=== PATIENT | female | born 1980 | race Caucasian/White ===

== ENCOUNTER 2018-04-04 11:29 | Inpatient (IN) | payer BC, MEDICAID ==
[~2018-04-04] VITALS: Ht 167.6 cm; Wt 108.7 kg
[~2018-04-04 11:29] MED LIST: AMLO5TAB2; CARI-277 OR; MAXIDE; METO50TA7; NOR10T GT; OXYC5CAP17 OR; ZOLP-158 OR
[2018-04-04 13:47] LABS: Albumin 3.7 g/dL (3.4-5.0); BUN/Creatinine Ratio 15.9; Bilirubin, Total 1.4 mg/dL (0.2-1.0); Calcium 8.7 mg/dL (8.5-10.1); Magnesium 2.1 mg/dL (1.6-2.6); Potassium 3.6 mmol/L (3.5-5.1); Total Protein 8.3 g/dL (6.4-8.2)
[2018-04-04 14:10] LABS: Basophils # (auto) 0 uL; Basophils % (auto) 0.3 % (0.0-2.0); Eosinophils # (auto) 0 uL; Eosinophils % (auto) 0.1 % (0.0-7.0); Hematocrit 44.3 % (36.0-46.0); Hemoglobin 14.9 g/dL (12.2-16.2); Lymphocytes # (auto) 1.4 uL; Lymphocytes % (auto) 15.9 % (10.0-50.0); Mean Corpuscular Hemoglobin 31.7 pg (28.0-32.0); Mean Corpuscular Hgb Conc. 33.6 g/dL (32.0-36.0); Mean Corpuscular Volume 94.5 fL (80.0-100.0); Monocytes # (auto) 0.5 uL; Monocytes % (auto) 5.5 % (0.0-12.0); Neutrophils # (auto) 6.8 uL; Neutrophils % (auto) 78.2 % (37.0-80.0); Nucleated Red Blood Cells % 0.1 %; Platelet Count (auto) 248 10^3/uL (140-450); Red Blood Cells 4.69 10^6/uL (4.0-5.20); Red Cell Distribution Width 15.5 % (11.8-14.3); White Blood Cell 8.7 10^3/uL (4.4-10.8)
[2018-04-04] MEDS ORDERED: SODIUM CHLORIDE 0.9% 1,000 ML IVB ONE (14:41)
[2018-04-04] MEDS ORDERED: HYDROmorphone HCL 2 MG/ML VL IV ONE ×2 (14:45→18:30)
[2018-04-04] MEDS ORDERED: PROMETHAZINE HCL 25 MG/ML 1ML IV PRN (14:45)
[2018-04-04 15:42] LABS: INR 0.99 (0.9-1.15); Partial Thromboplastin Time 24.4 sec (23.78-33.04); Prothrombin Time 10.6 sec (9.27-12.13)
[2018-04-04] MEDS: SODIUM CHLORIDE 0.9% 1,000 ML IV SCH (18:00)
[2018-04-04] MEDS ORDERED: NITROGLYCERIN 0.4 MG SL TAB SL PRN (18:00)
[2018-04-04] MEDS ORDERED: MORPHINE SULFATE 8mg/ml INJ SDV IV PRN ×3 (18:00)
[2018-04-04] MEDS ORDERED: LEVOFLOXACIN 500MG 100 ML IV ONE (18:00)
[2018-04-04] MEDS ORDERED: LEVOFLOXACIN 500MG 100 ML IV SCH (18:24)
[2018-04-04] MEDS: cefTRIAXone 1GM/10ml IVPUSH 10 ML IV SCH (20:50)
[2018-04-04 21:00] VITALS: BP 163/110
[2018-04-04] MEDS: HYDROmorphone HCL 2 MG/ML VL IV PRN (21:31)
[2018-04-04 22:00] VITALS: BP 163/110
[2018-04-04] MEDS: FAMOTIDINE (10MG/ML) 2ML VL IV SCH (22:34)
[2018-04-04] MEDS: LORazepam 2MG/ML-1ML VIAL IV PRN (22:34)
[2018-04-04] MEDS: metroNIDAZOLE 500MG/100ML 100 ML IV SCH (22:34)
[2018-04-04 23:20] VITALS: BP 163/110
[2018-04-05] MEDS ORDERED: CYCL1TAB18 PO (00:16)
[2018-04-05] MEDS ORDERED: SERT-135 PO (00:16)
[2018-04-05] MEDS ORDERED: LEVO25TA6 PO (00:16)
[2018-04-05] MEDS ORDERED: LOSA100T25 PO (00:16)
[2018-04-05] MEDS: SODIUM CHLORIDE 0.9% 1,000 ML IV SCH ×4 (01:01→20:40)
[2018-04-05] MEDS ORDERED: HYDROmorphone HCL 2 MG/ML VL IV ONE (01:15)
[2018-04-05] MEDS: LORazepam 2MG/ML-1ML VIAL IV PRN (04:34)
[2018-04-05 05:00] VITALS: BP 159/102
[2018-04-05] MEDS: HYDROmorphone HCL 2 MG/ML VL IV PRN ×5 (05:29→21:56)
[2018-04-05] MEDS: metroNIDAZOLE 500MG/100ML 100 ML IV SCH ×3 (05:29→23:10)
[2018-04-05] MEDS: PROMETHAZINE HCL 25 MG/ML 1ML IV PRN ×4 (05:39→21:57)
[2018-04-05 06:00] LABS: Basophils # (auto) 0 uL; Basophils % (auto) 0.2 % (0.0-2.0); Eosinophils # (auto) 0 uL; Eosinophils % (auto) 0.1 % (0.0-7.0); Hematocrit 40.8 % (36.0-46.0); Hemoglobin 13.9 g/dL (12.2-16.2); Lymphocytes # (auto) 0.8 uL; Mean Corpuscular Hemoglobin 32.3 pg (28.0-32.0); Mean Corpuscular Volume 95.1 fL (80.0-100.0); Monocytes # (auto) 0.5 uL; Monocytes % (auto) 8.4 % (0.0-12.0); Neutrophils % (auto) 78.3 % (37.0-80.0); Nucleated Red Blood Cells % 0.1 %; Platelet Count (auto) 190 10^3/uL (140-450); Red Blood Cells 4.29 10^6/uL (4.0-5.20); Red Cell Distribution Width 15.6 % (11.8-14.3); White Blood Cell 6.4 10^3/uL (4.4-10.8)
[2018-04-05 06:46] LABS: Albumin 3.1 g/dL (3.4-5.0); Bilirubin, Total 1.1 mg/dL (0.2-1.0); Calcium 8.2 mg/dL (8.5-10.1); Potassium 3.5 mmol/L (3.5-5.1); Total Protein 7.4 g/dL (6.4-8.2)
[2018-04-05 06:50] LABS: Cholesterol 113 mg/dL (< 200); HDL Cholesterol 80 mg/dL (40-59); LDL Cholesterol 30 mg/dL (< 100); Triglycerides 43 mg/dL (< 150)
[2018-04-05 09:00] VITALS: BP 158/105
[2018-04-05] MEDS: FAMOTIDINE (10MG/ML) 2ML VL IV SCH ×2 (09:03→23:10)
[2018-04-05 13:00] VITALS: BP 159/94
[2018-04-05] MEDS: hydrALAZINE HCL 20 MG/ML VL IV PRN ×2 (15:50→15:53)
[2018-04-05 17:30] VITALS: BP 148/103
[2018-04-05 21:46] VITALS: BP 164/100
[2018-04-05] MEDS: cefTRIAXone 1GM/10ml IVPUSH 10 ML IV SCH (21:56)
[2018-04-06] MEDS: HYDROmorphone HCL 2 MG/ML VL IV PRN ×6 (01:58→22:31)
[2018-04-06] MEDS: PROMETHAZINE HCL 25 MG/ML 1ML IV PRN ×3 (01:58→10:12)
[2018-04-06] MEDS: SODIUM CHLORIDE 0.9% 1,000 ML IV SCH ×3 (04:53→21:40)
[2018-04-06] MEDS: hydrALAZINE HCL 20 MG/ML VL IV PRN (04:53)
[2018-04-06 04:54] VITALS: BP 166/106
[2018-04-06] MEDS: metroNIDAZOLE 500MG/100ML 100 ML IV SCH (05:54)
[2018-04-06 06:12] LABS: Albumin 2.7 g/dL (3.4-5.0); Potassium 3.1 mmol/L (3.5-5.1)
[2018-04-06 06:17] LABS: Bilirubin, Total 0.7 mg/dL (0.2-1.0); Total Protein 6.9 g/dL (6.4-8.2)
[2018-04-06 09:00] VITALS: BP 136/102
[2018-04-06] MEDS: FAMOTIDINE (10MG/ML) 2ML VL IV SCH ×2 (10:12→22:31)
[2018-04-06] MEDS ORDERED: LOSARTAN POTASSIUM 50 MG TAB PO ONE (11:45)
[2018-04-06] MEDS ORDERED: POTASSIUM CHL 20 Meq TABLET PO ONE (11:45)
[2018-04-06] MEDS ORDERED: LEVOTHYROXINE SODIUM 25 MCG TAB PO ONE (11:45)
[2018-04-06] MEDS ORDERED: ONDANSETRON HCL 4 MG/2 ML VIAL IV PRN (11:45)
[2018-04-06 12:00] VITALS: BP 139/92
[2018-04-06 17:00] VITALS: BP 135/89
[2018-04-06 22:00] VITALS: BP 158/86
[2018-04-07] MEDS: HYDROmorphone HCL 2 MG/ML VL IV PRN ×6 (02:34→23:56)
[2018-04-07] MEDS: SODIUM CHLORIDE 0.9% 1,000 ML IV SCH ×4 (02:35→16:28)
[2018-04-07 05:01] VITALS: BP 146/86
[2018-04-07 06:22] LABS: Basophils # (auto) 0 uL; Basophils % (auto) 0.9 % (0.0-2.0); Eosinophils # (auto) 0.1 uL; Hematocrit 34.2 % (36.0-46.0); Hemoglobin 11.4 g/dL (12.2-16.2); Lymphocytes # (auto) 1.5 uL; Lymphocytes % (auto) 35.2 % (10.0-50.0); Mean Corpuscular Hgb Conc. 33.3 g/dL (32.0-36.0); Monocytes # (auto) 0.3 uL; Monocytes % (auto) 7.1 % (0.0-12.0); Neutrophils # (auto) 2.3 uL; Neutrophils % (auto) 53.8 % (37.0-80.0); Nucleated Red Blood Cells % 0.1 %; Platelet Count (auto) 170 10^3/uL (140-450); Red Blood Cells 3.56 10^6/uL (4.0-5.20); Red Cell Distribution Width 15.6 % (11.8-14.3); White Blood Cell 4.2 10^3/uL (4.4-10.8)
[2018-04-07] MEDS: LEVOTHYROXINE SODIUM 25 MCG TAB PO SCH (06:36)
[2018-04-07 06:40] LABS: BUN/Creatinine Ratio 5.9; Calcium 7.9 mg/dL (8.5-10.1); Potassium 3.3 mmol/L (3.5-5.1)
[2018-04-07] MEDS ORDERED: POTASSIUM CHL 20 Meq TABLET PO ONE ×2 (08:00→08:04)
[2018-04-07] MEDS: FAMOTIDINE (10MG/ML) 2ML VL IV SCH ×2 (08:07→22:15)
[2018-04-07] MEDS ORDERED: SERTRALINE HCL 50 MG TAB PO SCH ×2 (08:15→10:00)
[2018-04-07 08:51] VITALS: BP 145/85
[2018-04-07] MEDS: LOSARTAN POTASSIUM 50 MG TAB PO SCH (09:17)
[2018-04-07 12:00] VITALS: BP 130/85
[2018-04-07 17:00] VITALS: BP 133/89
[2018-04-07 22:00] VITALS: BP 86/31
[2018-04-08] MEDS: HYDROmorphone HCL 2 MG/ML VL IV PRN ×7 (04:08→21:31)
[2018-04-08 04:56] VITALS: BP 136/94
[2018-04-08] MEDS: LEVOTHYROXINE SODIUM 25 MCG TAB PO SCH (06:14)
[2018-04-08] MEDS: SODIUM CHLORIDE 0.9% 1,000 ML IV SCH ×2 (07:15→17:15)
[2018-04-08 07:43] LABS: Potassium 3.7 mmol/L (3.5-5.1)
[2018-04-08 07:52] LABS: BUN/Creatinine Ratio 6.5; Calcium 8.2 mg/dL (8.5-10.1)
[2018-04-08] MEDS: FAMOTIDINE (10MG/ML) 2ML VL IV SCH ×2 (08:29→21:30)
[2018-04-08] MEDS: SERTRALINE HCL 50 MG TAB PO SCH (08:30)
[2018-04-08] MEDS: LOSARTAN POTASSIUM 50 MG TAB PO SCH (08:31)
[2018-04-08 09:00] VITALS: BP 140/94
[2018-04-08] MEDS: HYDROcodone-ACET 5/325MG TAB PO PRN ×2 (10:30→17:50)
[2018-04-08] MEDS ORDERED: LACTULOSE 20Gm/30ML SOLN PO PRN (11:30)
[2018-04-08] MEDS ORDERED: LACTULOSE 20Gm/30ML SOLN PO ONE (11:30)
[2018-04-08 13:00] VITALS: BP 149/93
[2018-04-08 16:57] VITALS: BP 152/90
[2018-04-08 21:55] VITALS: BP 140/92
[2018-04-09] MEDS: HYDROmorphone HCL 2 MG/ML VL IV PRN ×3 (01:38→10:04)
[2018-04-09 05:01] VITALS: BP 134/80
[2018-04-09] MEDS: LEVOTHYROXINE SODIUM 25 MCG TAB PO SCH (07:05)
[2018-04-09] MEDS: SODIUM CHLORIDE 0.9% 1,000 ML IV SCH ×2 (07:06→13:15)
[2018-04-09] MEDS: HYDROcodone-ACET 5/325MG TAB PO PRN (08:09)
[2018-04-09 09:22] VITALS: BP 146/91
[2018-04-09] MEDS: FAMOTIDINE (10MG/ML) 2ML VL IV SCH (10:03)
[2018-04-09] MEDS: LOSARTAN POTASSIUM 50 MG TAB PO SCH (10:03)
[2018-04-09] MEDS: SERTRALINE HCL 50 MG TAB PO SCH (10:04)
[2018-04-09 12:57] VITALS: BP 132/96
[2018-04-09 13:19] VITALS: BP 132/96
== END 2018-04-09 13:55 | disposition home or self-care (01) | DRG 439 ==
LOC: EDBD 11:29 → ER 11:29 → TELE 11:30 → TELE-EAST 20:45 → EAST 04-06 11:48
PROVIDERS: ADMIT Internal Medicine; ATTEND Internal Medicine
DX: K85.20 Alcohol induced acute pancreatitis without necrosis or infection (principal); E87.1 Hypo-osmolality and hyponatremia; E87.2 Acidosis; K76.0 Fatty (change of) liver, not elsewhere classified; F10.10 Alcohol abuse, uncomplicated; F32.9 Major depressive disorder, single episode, unspecified; I10 Essential (primary) hypertension; F41.9 Anxiety disorder, unspecified; K81.1 Chronic cholecystitis; E66.9 Obesity, unspecified; Z68.38 Body mass index [BMI] 38.0-38.9, adult; Z71.3 Dietary counseling and surveillance; Z98.51 Tubal ligation status; Z88.0 Allergy status to penicillin; Z79.899 Other long term (current) drug therapy
CPT/HCPCS: 36415; 71045; 74176; 78226; 80048; 80053; 80061; 82150; 83690; 83735; 84443; 84702; 85025; 85610; 85730; 93005; 94761; 96361; 96365; 96375; J1956; J3490